=== PATIENT | female | born 1980 | race Caucasian/White ===

== ENCOUNTER → 2019-06-15 | Outpatient (REF) | payer OTHER ==
[2019-06-15 20:26] LABS: BASO # 0.1 10^3/uL (0.0-0.2); BASO % 0.9 % (0.0-1.0); EOS # 0.2 10^3/uL (0.0-0.5); EOS % 2.2 % (0.0-3.0); HEMATOCRIT 36.2 % (36.0-47.0); HEMOGLOBIN 10.8 g/dl (12.0-15.5); LYMPH # 1.9 10^3/uL (1.5-5.0); LYMPH % 22.9 % (24.0-44.0); MEAN CORPUSCULAR HEMOGLOBIN 23.5 pg (27.0-33.0); MEAN CORPUSCULAR HGB CONC 29.8 g/dl (32.0-36.5); MEAN CORPUSCULAR VOLUME 78.7 fl (80.0-96.0); MONO # 0.6 10^3/uL (0.0-0.8); MONO % 7.3 % (0.0-5.0); NEUTROPHILS # 5.4 10^3/uL (1.5-8.5); NEUTROPHILS % 66.5 % (36.0-66.0); PLATELET COUNT, AUTOMATED 440 10^3/uL (150-450); WHITE BLOOD COUNT 8.1 10^3/uL (4.0-10.0)
[2019-06-15 22:46] LABS: ALBUMIN 3.6 GM/DL (3.2-5.2); ALT/SGPT 22 U/L (12-78); BILIRUBIN,TOTAL 0.2 MG/DL (0.2-1.0); BLOOD UREA NITROGEN 16 MG/DL (7-18); CARBON DIOXIDE LEVEL 30 MEQ/L (21-32); CHLORIDE LEVEL 105 MEQ/L (98-107); CHOLESTEROL LEVEL 157 MG/DL (<200); CHOLESTEROL RISK RATIO 2.907 (<5); CREATININE FOR GFR 0.88 MG/DL (0.55-1.30); GLOMERULAR FILTRATION RATE > 60.0 (>60); GLUCOSE, FASTING 91 MG/DL (70-100); HDL CHOLESTEROL 54 MG/DL (>40); LDL CHOLESTEROL 84 MG/DL (<100); NON-HDL-C 103 MG/DL; POTASSIUM SERUM 3.9 MEQ/L (3.5-5.1); SODIUM LEVEL 141 MEQ/L (136-145); TOTAL PROTEIN 7.3 GM/DL (6.4-8.2); TRIGLYCERIDES LEVEL 94 MG/DL (<150)
[2019-06-16 03:23] LABS: HEMOGLOBIN A1c 5.6 %
== END ==
LOC: M SFHCLERA 16:21
PROVIDERS: ATTEND Family Medicine
DX: E66.01 Morbid (severe) obesity due to excess calories (principal); I72.0 Aneurysm of carotid artery; F43.22 Adjustment disorder with anxiety; R63.5 Abnormal weight gain; Z23 Encounter for immunization; R91.1 Solitary pulmonary nodule; D50.9 Iron deficiency anemia, unspecified
CPT/HCPCS: 80053; 80061; 83036; 84443; 85025; 90471; 90682; G0463

== ENCOUNTER → 2019-07-21 | Outpatient (REF) | payer OTHER ==
[2019-07-21 15:33] LABS: AMORPHOUS SEDIMENT MODERATE (NEGATIVE); APPEARANCE, URINE TURBID (CLEAR); BACTERIA, URINE AUTO NEGATIVE (NEGATIVE); BILIRUBIN, URINE AUTO NEGATIVE (NEGATIVE); BLOOD, URINE BLOOD NEGATIVE (NEGATIVE); COLOR, URINE YELLOW (YELLOW); GLUCOSE, URINE (UA) AUTO NEGATIVE (NEGATIVE); KETONE, URINE AUTO NEGATIVE (NEGATIVE); LEUKOCYTE ESTERASE, URINE AUTO NEGATIVE (NEGATIVE); MUCUS, URINE SMALL (NEGATIVE); NITRITE, URINE AUTO NEGATIVE (NEGATIVE); PROTEIN, URINE AUTO NEGATIVE (NEGATIVE); RBC, URINE AUTO 0 /HPF (0-3); SPECIFIC GRAVITY URINE AUTO 1.025 (1.002-1.035); SQUAMOUS EPITHELIAL CELL UR AU 0 /HPF (0-6); UROBILINOGEN, URINE AUTO 0.2 mg/dL (0.0-2.0); WBC, URINE AUTO 0 /HPF (0-3)
== END ==
LOC: M SFHCLERA 08:38
PROVIDERS: ATTEND Family Medicine
DX: R39.15 Urgency of urination (principal)
CPT/HCPCS: 81001; 87086; G0463

== ENCOUNTER → 2019-07-22 | Outpatient (CLI) | payer OTHER ==
--- NOTE | 2019-07-22 15:16 | REP ---
LIMITED PELVIC BLADDER SONOGRAPHY: HISTORY: Urinary incontinence. Urgency. FINDINGS: Visualized urinary bladder west are smooth. No bladder mass lesion is seen. Emptying ureteral jets are observed bilaterally on color Doppler interrogation of the bladder lumen. Pre-void bladder volume is calculated 113 ml. Post-void imaging shows complete emptying. IMPRESSION: Somewhat limited size filled bladder, 130 mL. Otherwise negative. Electronically Signed by Gallo Mclean MD 07/22/2019 08:49 P
== END ==
LOC: M LRY 08:43
PROVIDERS: ATTEND Family Medicine
DX: R39.15 Urgency of urination (principal)

== ENCOUNTER → 2019-07-26 | Outpatient (CLI) | payer OTHER ==
--- NOTE | 2019-07-26 19:47 | ECHO ---
DATE OF PROCEDURE: 07/26/2019 REFERRING PHYSICIAN: Dr. Tello INDICATION: Orthopnea. Height 167 cm, weight 119 kg. DIMENSIONS: IVS: 0.9 LV: 5.3 LVPW: 0.8 LA: 3.9 Aorta: 2.6 RV: 3.5 Left atrium volume index: 19 IVC: 2.1 Mitral E wave velocity: 102 A wave: 59 E prime septal: 9.3 E prime lateral: 12 FINDINGS: The study is of acceptable technical quality. The patient is in sinus rhythm. Left ventricle is normal size and systolic function, estimated LVEF 65%. Right ventricle was slightly less well seen but overall appears to have normal size and systolic function. Both atria appear normal. All four cardiac valves were reasonably well seen and appear normal. No pericardial effusion is noted. Inferior vena cava is borderline dilated but appropriately collapses with inspiration. Aortic root and aortic arch are normal. Abdominal aorta was not well seen. Doppler interrogation reveals competent aortic valve. There is trace mitral and trace tricuspid insufficiency. Calculated pulmonary artery pressure is within normal limits. Mitral inflow pattern and tissue Doppler imaging of mitral annulus revealed normal diastolic function. CONCLUSIONS: 1. Study is of acceptable technical quality. The patient is in sinus rhythm. 2. Normal left ventricular (LV) size with normal LV systolic and diastolic function. 3. No significant valvular disease. 4. Normal or mildly elevated central venous pressure but likely normal pulmonary artery pressure. COMMENT: Subacute bacterial endocarditis (SBE) prophylaxis is not recommended.
== END ==
LOC: M CARPUL 08:10
PROVIDERS: ATTEND Family Medicine
DX: R06.01 Orthopnea (principal)

== ENCOUNTER → 2019-08-05 | Outpatient (RCR) | payer OTHER | LOC: M PT 07-22 13:28 | PROVIDERS: ATTEND Family Medicine | DX: M54.6 Pain in thoracic spine (principal) ==

== ENCOUNTER 2019-09-02 10:15 | Outpatient (RCR) | payer OTHER | END 2019-09-03 | LOC: M PT 10:15 | PROVIDERS: ATTEND Family Medicine | DX: M54.9 Dorsalgia, unspecified (principal) ==

== ENCOUNTER → 2019-09-28 | Outpatient (REF) | payer OTHER ==
[2019-09-28 17:45] LABS: BASO # 0.1 10^3/uL (0.0-0.2); BASO % 0.6 % (0.0-1.0); EOS # 0.2 10^3/uL (0.0-0.5); EOS % 2.1 % (0.0-3.0); HEMATOCRIT 37.4 % (36.0-47.0); HEMOGLOBIN 11.2 g/dl (12.0-15.5); LYMPH % 18.9 % (24.0-44.0); MEAN CORPUSCULAR HEMOGLOBIN 23.9 pg (27.0-33.0); MEAN CORPUSCULAR HGB CONC 29.9 g/dl (32.0-36.5); MEAN CORPUSCULAR VOLUME 79.7 fl (80.0-96.0); MONO # 0.7 10^3/uL (0.0-0.8); MONO % 6.4 % (0.0-5.0); NEUTROPHILS # 7.4 10^3/uL (1.5-8.5); NEUTROPHILS % 71.6 % (36.0-66.0); PLATELET COUNT, AUTOMATED 438 10^3/uL (150-450); RED BLOOD COUNT 4.69 10^6/uL (4.00-5.40); WHITE BLOOD COUNT 10.3 10^3/uL (4.0-10.0)
[2019-09-28 17:53] LABS: ALBUMIN 3.6 GM/DL (3.2-5.2); ALT/SGPT 16 U/L (12-78); BILIRUBIN,TOTAL 0.2 MG/DL (0.2-1.0); BLOOD UREA NITROGEN 13 MG/DL (7-18); CALCIUM LEVEL 8.8 MG/DL (8.5-10.1); CARBON DIOXIDE LEVEL 28 MEQ/L (21-32); CHLORIDE LEVEL 105 MEQ/L (98-107); CREATININE FOR GFR 0.77 MG/DL (0.55-1.30); GLOMERULAR FILTRATION RATE > 60.0 (>60); GLUCOSE, FASTING 79 MG/DL (70-100); POTASSIUM SERUM 4.1 MEQ/L (3.5-5.1); RHEUMATOID FACTOR QUANT < 10.0 IU/ML (<15.0); SODIUM LEVEL 139 MEQ/L (136-145); TOTAL PROTEIN 7.4 GM/DL (6.4-8.2)
[2019-09-28 18:25] LABS: ERYTHROCYTE SEDIMENTATION RATE 40 mm/hr (0-20)
== END ==
LOC: M LABNEURO 14:59
PROVIDERS: ATTEND Psychiatry & Neurology Neurology
DX: R51 Headache (principal); G45.9 Transient cerebral ischemic attack, unspecified

== ENCOUNTER → 2019-12-16 | Outpatient (CLI) | payer OTHER ==
--- NOTE | 2019-12-16 17:31 | REP ---
REASON FOR EXAM: Pulmonary nodule. The prior imaging study is in [place] and is unavailable for comparison. I have no priors for comparison, and there is no indication as to where this supposed nodule is. The lack of intravenous contrast decreases the sensitivity of the exam. Limited evaluation of the mediastinum and pulmonary ciara show calcifications in the left hilum. There is no evidence of a mass or adenopathy. The imaged upper abdomen shows multiple focal areas of low densities scattered throughout the liver parenchyma, the largest measuring approximately a centimeter and seen in the lateral segment of the left lobe of the liver. Also in the liver, there are three other faintly visible areas of low density too small and too nondescript for CT evaluation. Surgical clips are seen in the gallbladder fossa from previous cholecystectomy. Evaluation of the osseous structures show them to be within normal limits. Evaluation of the lung headley shows and incidental calcified granuloma in the left lower lobe. There are no abnormal noncalcified nodules or abnormal lung parenchymal opacities. There are no pleural or pericardial effusions. IMPRESSION: 1. Incidental calcified granuloma in the left lower lobe. 2. Calcified left hilar lymph nodes, likely granulomatous changes as well. 3. Multiple low-density areas in the liver incompletely evaluated on this noncontrast enhanced chest CT. Pre- and postcontrast enhanced CT of the abdomen is recommended for further evaluation. 4. Other findings as described above. Electronically Signed by Oracio Arroyo DO 12/19/2019 08:32 A
== END ==
LOC: M RAD 14:30
PROVIDERS: ATTEND Family Medicine
DX: R91.1 Solitary pulmonary nodule (principal); J84.10 Pulmonary fibrosis, unspecified; K76.89 Other specified diseases of liver

== ENCOUNTER → 2020-01-31 | Outpatient (CLI) | payer OTHER | LOC: M LAB 14:11 | PROVIDERS: ATTEND Family Medicine | DX: R93.5 Abnormal findings on diagnostic imaging of other abdominal regions, including retroperitoneum (principal) ==

== ENCOUNTER → 2020-01-31 | Outpatient (CLI) | payer OTHER ==
--- NOTE | 2020-03-23 14:46 | REP ---
CT OF THE ABDOMEN AND PELVIS WITHOUT INTRAVENOUS (IV) OR BOWEL CONTRAST COMPARISON: Chest CT without IV contrast dated 12/16/2019. On the comparison study, there were multiple low-density areas in the liver. There was also a calcified granuloma in the lower lobe of the left lung. There are no comparison abdomen or pelvis CT studies. FINDINGS: On the study today, multiple low-density areas in the liver are identified; essentially unchanged from the prior study, the largest measuring up to 11 mm. These are nonspecific by CT; however, the multiplicity is somewhat bothersome. The unenhanced hepatic parenchyma is otherwise unremarkable. The study is insensitive in the absence if IV contrast. There are surgical clips in the gallbladder fossa. This is unchanged. The pancreas and spleen are normal size and unremarkable. The unenhanced adrenals and the kidneys are unremarkable. The abdominal aorta is unremarkable. The bowel and mesentery are unremarkable. There is a surgical clip at the cecal tip. PELVIS: There is a low-density ovoid nodular structure in the left adnexa, possibly an adnexal cyst. Follow-up pelvic ultrasound might be considered for confirmation. The right adnexa is unremarkable. The uterus and bladder are unremarkable. The pelvic bowel loops are unremarkable. There is no pelvic adenopathy or ascites. IMPRESSION: There are multiple low-densities areas in the liver, similar to the comparison chest CT. These are nonspecific by CT. Follow-up options are hepatic MRI versus follow-up abdomen/pelvis CT in approximately four to six months. There is no abdominal or pelvic adenopathy. There is no ascites. There is evidence for cholecystectomy and appendectomy. Possible left adnexal cyst. Consider pelvic ultrasound for further evaluation. [facility]
== END ==
LOC: M RAD 14:11
PROVIDERS: ATTEND Family Medicine
DX: R93.5 Abnormal findings on diagnostic imaging of other abdominal regions, including retroperitoneum (principal)

== ENCOUNTER → 2020-05-21 | Outpatient (CLI) | payer SELFPAY | LOC: M LABSMTC 12:19 | PROVIDERS: ATTEND Pediatrics | DX: Z20.828 Contact with and (suspected) exposure to other viral communicable diseases (principal) ==

== ENCOUNTER → 2020-06-05 | Outpatient (REF) | payer OTHER | LOC: M SFHCWAGY 17:16 | PROVIDERS: ATTEND Advanced Practice Midwife | DX: Z12.4 Encounter for screening for malignant neoplasm of cervix (principal); Z01.419 Encounter for gynecological examination (general) (routine) without abnormal findings ==